=== PATIENT | female | born 1980 | race Caucasian/White ===

== ENCOUNTER 2019-09-20 09:29 | Outpatient (CLI) | payer OTHER, SELFPAY ==
--- NOTE | ~2019-09-20 | MM_ITS ---
EXAMINATION: MM screening [facility] BI w dean HISTORY: Baseline screening mammogram TECHNIQUE: Craniocaudal and mediolateral oblique 3-D tomosynthesis images were obtained and synthetic 2-D images were generated. CAD analysis was submitted and interpreted. COMPARISON: None, baseline BREAST PARENCHYMAL COMPOSITION: The breasts are heterogeneously dense, which may obscure small masses . FINDINGS: RIGHT BREAST: There is no evidence of suspicious mass, calcification, or architectural distortion to suggest malignancy. LEFT BREAST: An asymmetry is present in the middle third of the inner breast on the craniocaudal view . IMPRESSION: 1. Left breast asymmetry on the craniocaudal view. 2. Additional mammographic views and possible breast ultrasound are recommended to evaluate for malig joycelyn and establish a baseline given that this is the first mammographic examination. BI-RADS Category 0: Incomplete: Needs additional imaging evaluation. Reviewed, dictated and finalized at location A. G BOX HAND IMPRESSION: 1. Left breast asymmetry on the craniocaudal view. 2. Additional mammographic views and possible breast ultrasound are recommended to evaluate for malignancy and establish a baseline given that this is the fir st mammographic examination. BI-RADS Category 0: Incomplete: Needs additional imaging evaluation.
== END 2019-09-20 09:30 | disposition home or self-care (01) ==
DX: Z12.31 Encounter for screening mammogram for malignant neoplasm of breast (principal); R92.8 Other abnormal and inconclusive findings on diagnostic imaging of breast
CPT/HCPCS: 77063; 77067

== ENCOUNTER 2020-05-24 13:11 | Outpatient (CLI) | payer OTHER, SELFPAY ==
--- NOTE | ~2020-05-24 | MMUS_ITS ---
EXAMINATION: MM diagnostic nesha LT w dean, US breast LT complete HISTORY: Follow-up left breast asymmetry TECHNIQUE: Additional 3-D tomosynthesis images of left were performed and synthetic 2-D images were g enerated. CAD analysis was submitted and interpreted. High resolution Limited left breast ultrasound was performed. COMPARISON: 09/20/2019 BREAST PARENCHYMAL COMPOSITION: The breasts are heterogenously dense, which may obscure small masses. FINDINGS: MAMMOGRAPHIC FINDINGS: There is a 1 cm mass in the lower inner quadrant of the left breast with circumscribed margins. No rinaldi spicious calcifications or architectural distortion. ULTRASOUND: Left breast ultrasound: At 7:00, 5 cm from the nipple there is some 8 x 8 x 6 mm hypoechoic mass with heterogeneous internal echotexture. Mixed posterior attenuation. No internal vascularity. IMPRESSION: 1. Complex hypoechoic left breast mass at 7:00, 5 cm from the nipple measuring 8 mm. This corresponds to the mammographic finding. 2. Ultrasound-guided left breast biopsy recommended. BI-RADS category 4, suspicious findings. Reviewed, dictated and finalized at location A. IMPRESSION: 1. Complex hypoechoic left breast mass at 7:00, 5 cm from the nipple measuring 8 mm. This corresponds to the mammographic finding. 2. Ultrasound-guided left breast biopsy recommended. BI-RADS category 4, suspicious findings.
== END 2020-05-24 13:12 | disposition home or self-care (01) ==
PROVIDERS: Visit Provider Obstetrics & Gynecology
DX: R92.8 Other abnormal and inconclusive findings on diagnostic imaging of breast (principal)
CPT/HCPCS: 76641; 77061; 77065; G0279